=== PATIENT | male | born 1980 | race African-American/Black ===

== ENCOUNTER 2019-05-19 23:02 | Emergency (ER) | payer SELFPAY ==
[~2019-05-19] VITALS: Ht 172.7 cm; Wt 65.8 kg
[2019-05-19 23:16] VITALS: BP 151/74
--- NOTE | 2019-05-19 23:16 | NUR ---
ED Nurse Note: Patient walked in to ER due to dizziness, weakness. States that he fainted today at 2100. As per patient he feels an electricity at the back his head. No stated medical history. Pt alert and oriented, verbally responsive. No SOB. VSS.
--- NOTE | 2019-05-20 00:15 | NUR ---
ED Nurse Note: Patient able to walk to the restroom with steady gait.
--- NOTE | 2019-05-20 00:16 | Emergency Room Report ---
History of Present Illness General Chief Complaint: General Complaint Source: Patient Present Illness HPI This is a 38-year-old male with no past medical history. He presents with chief complaint of headache and dizziness. Patient said that he was sitting down and he felt like a sharp jolt like an electrical shock to the back of his head. He said he jumped up because of the pain. He said that he passed out. He did not pass out for 45 minutes. He was not sure. When I asked him further , he said it could be minutes to 45 minutes. He said he was not looking at a clock. When he woke up he came here. He complaining of some dizziness still. He is able to walk it without any problem. No nausea no vomiting. No fever chills but no oral trauma. No incontinence of bowel or urine. Denies any drug use or alcohol use. He said he had the same problem last year and went to the ER and work-up was negative. He never had any follow-up with specialist. Allergies: Coded Allergies: No Known Allergies (Unverified , 05/19/19) Patient History Past Medical History: see triage record, old chart reviewed Past Surgical History: none Pertinent Family History: none Social History: Denies: smoking Immunizations: other Reviewed Nursing Documentation: PMH: Agreed; PSxH: Agreed Nursing Documentation-PMH Past Medical History: No Stated History Review of Systems Eye: Denies: eye pain, blurred vision ENT: Denies: ear pain, nose congestion, throat swelling Respiratory: Denies: cough, shortness of breath Cardiovascular: Denies: chest pain, palpitations Gastrointestinal: Denies: abdominal pain, diarrhea, nausea, vomiting Musculoskeletal: Denies: back pain, joint pain Skin: Denies: rash Neurological: Denies: headache, numbness Endocrine: Denies: increased thirst, increased urine Hematologic/Lymphatic: Denies: easy bruising All Other Systems: negative except mentioned in HPI Physical Exam Vital Signs Date Time Temp Pulse Resp B/P (MAP) Pulse Ox O2 Delivery O2 Flow Rate FiO2 05/19/19 23:12 97.9 67 18 151/74 (99) 99 Room Air Vitals with high blood pressure Sp02 EP Interpretation: reviewed, normal General Appearance: well appearing, no apparent distress, alert Head: normocephalic, atraumatic Eyes: bilateral eye PERRL, bilateral eye EOMI ENT: hearing grossly normal, normal pharynx Neck: full range of motion, supple, no meningismus Respiratory: chest non-tender, lungs clear, normal breath sounds Cardiovascular #1: regular rate, rhythm, no murmur Gastrointestinal: normal bowel sounds, non tender, no mass, no organomegaly, no bruit, non-distended Musculoskeletal: back normal, gait/station normal, normal range of motion Psychiatric: mood/affect normal Medical Decision Making Diagnostic Impression: Primary Impression: Headache Qualified Codes: R51 - Headache ER Course Patient presents with headache. There is a gap in his history of anywhere from minutes to 45 minutes. He has no evidence of any injury. He has no evidence of seizure activity with no oral trauma or incontinence of bowel or urine. No evidence of any meningitis, bleed, mass. Will discharge home with neurology follow-up. CT/MRI/US Diagnostic Results CT/MRI/US Diagnostic Results : Imaging Test Ordered: CT head Impression Negative per radiologist Last Vital Signs Date Time Temp Pulse Resp B/P (MAP) Pulse Ox O2 Delivery O2 Flow Rate FiO2 05/19/19 23:16 97.9 80 18 151/74 99 Room Air Status: improved Disposition: HOME, SELF-CARE Condition: Stable Additional Instructions: Follow-up with your doctor in a week. You will need referral to see a neurologist for further work-up. You may need an EEG and other work-up for seizure. Return if worse. Aldo Oconnor MD May 20, 2019 00:16
--- NOTE | 2019-05-20 01:10 | NUR ---
ED Nurse Note: Pt taken for CT.
--- NOTE | 2019-05-20 01:33 | NUR ---
ED Nurse Note: Pt came back from CT.
--- NOTE | 2019-05-20 01:35 | Diagnostic Imaging Report ---
Indication: Headache Technique: Contiguous 5 mm thick transaxial imaging of the head obtained in a Siemens Sensation [address] scanner. Soft tissue and bone windows generated. Automatic Exposure Control was utilized. Total Dose length Product (DLP): 1489.[address] Dose Index Volume (CTDIvol): 62.7 mGy Comparison: none Findings: The size and configuration of the cortical sulci, basal cisterns, and ventricles are within normal limits for age. There is no mass effect, midline shift, or edema identified. There is no evidence of acute hemorrhage or abnormal intra-axial or extra-axial fluid collections. The bones and soft tissues are unremarkable. Impression: No mass effect, edema or acute bleed. The CT scanner at [facility] is accredited by the [employer] and the scans are performed using dose optimization techniques as appropriate to a performed exam including Automatic Exposure control.
[2019-05-20 01:38] VITALS: BP 151/74
--- NOTE | 2019-05-20 01:38 | NUR ---
ED Nurse Note: Pt cleared by ERMD for discharge. DC instructions was given and explained to pt and verbalized understanding of teachings. All medical deviecs such as ID band removed. Pt is AAO x4, ambulatory and left with all personal belongings.
== END 2019-05-20 01:38 | disposition home or self-care (01) ==
LOC: EMR 05-20 00:32
DX: R51 Headache (principal)
CPT/HCPCS: 70450; 99284

== ENCOUNTER 2019-05-29 19:07 | Inpatient (IN) | payer MEDICAID ==
[~2019-05-29] VITALS: Ht 172.7 cm; Wt 63.5 kg
[2019-05-29 19:25] VITALS: BP 121/74
--- NOTE | 2019-05-29 19:36 | Emergency Room Report ---
History of Present Illness General Chief Complaint: Chest Pain Source: Patient Present Illness HPI Patient with shower and started feeling palpitations with nearly passing out. He had been playing basketball earlier. He also had a couple of beers. He denies any chest pain at that time. He was somewhat short of breath. In coming to the emergency department symptoms are somewhat better at this time. Apparently in triage his heart rate was 117. He is uncertain whether he was starting to feel better. 4 days ago he was evaluated here for some unusual sensation in the back of his head. As he was laying down to go to sleep he had a shocking feeling that went from his head down the back of his neck to his body. There is no loss of consciousness. He states that the CT scan that was done was negative. No answers to what the cause is. No other labs done. No neck stiffness. He denies any stress. These symptoms cause anxiety. His work is very physical and he denies chest pain or dyspnea. He drinks at least 1/2 gallon of water a day. No muscle tenderness. No fevers, chills, sore throat, chest pain, nausea, vomiting, diarrhea, dysuria , abdominal pain, joint pain, rashes, depression, visual changes, headache. 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 Nursing Documentation: PMH: Agreed; PSxH: Agreed Nursing Documentation-PM Past Medical History: No Stated History Review of Systems All Other Systems: negative except mentioned in HPI Physical Exam Vital Signs Date Time Temp Pulse Resp B/P (MAP) Pulse Ox O2 Delivery O2 Flow Rate FiO2 05/29/19 19:10 97.3 98 18 121/74 (90) 99 Room Air Sp02 EP Interpretation: reviewed, normal General Appearance: well appearing, no apparent distress, GCS 15 Head: normocephalic, atraumatic Eyes: bilateral eye normal inspection, bilateral eye PERRL, bilateral eye EOMI ENT: normal pharynx, moist mucus membranes Neck: full range of motion, supple, no meningismus Respiratory: chest non-tender, lungs clear, normal breath sounds Cardiovascular #1: regular rate, rhythm Cardiovascular #2: 2+ radial (R) Gastrointestinal: normal inspection, normal bowel sounds, non tender, no mass, non-distended, scaphoid Musculoskeletal: back normal, normal range of motion, digits/nails normal, no calf tenderness, gait/station normal Neurologic: alert, oriented x3, sensory intact, cerebellar normal, speech normal, normal gait, grossly normal Psychiatric: anxious Skin: no rash, other - tattoos Medical Decision Making Diagnostic Impression: Primary Impression: Arrhythmia Qualified Codes: I49.9 - Cardiac arrhythmia, unspecified Additional Impressions: Leukocytosis Qualified Codes: D72.828 - Other elevated white blood cell count Hypomagnesemia Episodic shocking sensation posterior head pre-renal renal insuffiency Elevated blood uric acid level ER Course Patient presents with palpitations and near syncope. Differential includes PSVT , other arrhythmia, myocarditis, pulmonary embolus, anxiety, alcohol withdrawal (though unlikely) amongst others. Evaluation with EKG, chest x-ray and labs. Patient is placed on a color television console monitor. EKG normal sinus rhythm rate 78 possible left atrial enlargement, left ventricular hypertrophy with repolarization abnormality. Chest x-ray heart upper limits of normal. No infiltrates. Labs significant with leukocytosis. Left shift. Hemoglobin normal. CMP remarkable for renal insufficiency. Magnesium low. CPK minimally elevated. Tox screen and alcohol negative. Urinalysis without casts. ESR and C-reactive protein negative. Uric acid elevated. Magnesium administered IV. Patient feeling anxious and Ativan given. Due to renal insufficiency IV hydration continued. Fractional excretion of sodium suggests pre-renal. Etiology of the leukocytosis is unclear. His EKG is abnormal. Admitted observation telemetry. Consider cardiac echo. Laboratory Tests Test 05/29/19 19:40 05/29/19 23:40 White Blood Count 18.2 K/UL (4.8-10.8) H Red Blood Count 4.74 M/UL (4.70-6.10) Hemoglobin 15.5 G/DL (14.2-18.0) Hematocrit 42.4 % (42.0-52.0) Mean Corpuscular Volume 89 FL (80-99) Mean Corpuscular Hemoglobin 32.7 PG (27.0-31.0) H Mean Corpuscular Hemoglobin Concent 36.6 G/DL (32.0-36.0) H Red Cell Distribution Width 10.6 % (11.6-14.8) L Platelet Count 323 K/UL (150-450) Mean Platelet Volume 5.1 FL (6.5-10.1) L Neutrophils (%) (Auto) 82.2 % (45.0-75.0) H Lymphocytes (%) (Auto) 10.4 % (20.0-45.0) L Monocytes (%) (Auto) 7.0 % (1.0-10.0) Eosinophils (%) (Auto) 0.1 % (0.0-3.0) Basophils (%) (Auto) 0.3 % (0.0-2.0) Erythrocyte Sedimentation Rate 8 MM/HR (0-15) Prothrombin Time 10.5 SEC (9.30-11.50) Prothrombin Time INR 1.0 (0.9-1.1) PTT 24 SEC (23-33) Urine Color Pale yellow Urine Appearance Clear Urine pH 8 (4.5-8.0) Urine Specific [place] 1.010 (1.005-1.035) Urine Protein Negative (NEGATIVE) Urine Glucose (UA) Negative (NEGATIVE) Urine Ketones Negative (NEGATIVE) Urine Blood Negative (NEGATIVE) Urine Nitrite Negative (NEGATIVE) Urine Bilirubin Negative (NEGATIVE) Urine Urobilinogen Normal MG/DL (0.0-1.0) Urine Leukocyte Esterase Negative (NEGATIVE) Urine Random Sodium 31 mmol/L (20-110) Urine Creatinine 38.2 MG/DL (30.0-125.0) Sodium Level 141 MMOL/L (136-145) Potassium Level 4.0 MMOL/L (3.5-5.1) Chloride Level 102 MMOL/L (98-107) Carbon Dioxide Level 27 MMOL/L (21-32) Anion Gap 12 mmol/L (5-15) Blood Urea Nitrogen 23 mg/dL (7-18) H Creatinine 1.6 MG/DL (0.55-1.30) H Estimate Glomerular Filtration Rate 58.3 mL/min (>60) Glucose Level 88 MG/DL (74-106) Uric Acid 7.4 MG/DL (2.6-7.2) H Calcium Level 9.9 MG/DL (8.5-10.1) Magnesium Level 1.4 MG/DL (1.8-2.4) L Total Bilirubin 1.1 MG/DL (0.2-1.0) H Direct Bilirubin 0.2 MG/DL (0.0-0.3) Aspartate Amino Transferase (AST) 22 U/L (15-37) Alanine Aminotransferase (ALT) 25 U/L (12-78) Alkaline Phosphatase 63 U/L (46-116) Total Creatine Kinase 346 U/L (26-308) H Troponin I 0.027 ng/mL (0.000-0.056) 0.050 ng/mL (0.000-0.056) C-Reactive Protein, Quantitative < 0.4 mg/dL (0.00-0.90) Pro-B-Type Natriuretic Peptide 34 pg/mL (0-125) Total Protein 8.1 G/DL (6.4-8.2) Albumin 4.6 G/DL (3.4-5.0) Globulin 3.5 g/dL Albumin/Globulin Ratio 1.3 (1.0-2.7) Urine Opiates Screen Negative (NEGATIVE) Urine Barbiturates Screen Negative (NEGATIVE) Phencyclidine (PCP) Screen Negative (NEGATIVE) Urine Amphetamines Screen Negative (NEGATIVE) Urine Benzodiazepines Screen Negative (NEGATIVE) Urine Cocaine Screen Negative (NEGATIVE) Urine Marijuana (THC) Screen Negative (NEGATIVE) Serum Alcohol < 3 mg/dL Lactic Acid Level 0.50 mmol/L (0.4-2.0) Thyroid Stimulating Hormone (TSH) 1.654 uiU/mL (0.358-3.740) EKG Diagnostic Results Rate: normal Rhythm: NSR ST Segments: no acute changes - Left atrial enlargement, left ventricular hypertrophy with repolarization abnormality Rhythm Strip Diag. Results EP Interpretation: yes Rhythm: NSR, no PVC's, no ectopy Chest X-Ray Diagnostic Results Chest X-Ray Diagnostic Results : Chest X-Ray Ordered: Yes # of Views/Limited/Complete: 1 View Indication: Other EP Interpretation: Yes Interpretation: no consolidation, no effusion, no pneumothorax Impression: No acute disease Electronically Signed by: Electronically signed by Rivera Burgess MD Last Vital Signs Date Time Temp Pulse Resp B/P (MAP) Pulse Ox O2 Delivery O2 Flow Rate FiO2 05/30/19 00:00 97.7 71 18 114/71 (85) 99 05/29/19 23:15 Room Air Status: improved Disposition: PLACE IN OBSERVATION Condition: Serious Rivera Burgess MD May 29, 2019 19:36
[2019-05-29 20:02] LABS: HEMATOCRIT 42.4 % (42.0-52.0); HEMOGLOBIN 15.5 G/DL (14.2-18.0); MEAN CORPUSCULAR VOLUME 89 FL (80-99); PLATELET COUNT 323 K/UL (150-450); RED BLOOD COUNT 4.74 M/UL (4.70-6.10); RED CELL DISTRIBUTION WIDTH 10.6 % (11.6-14.8); WHITE BLOOD COUNT 18.2 K/UL (4.8-10.8)
[2019-05-29 20:04] LABS: APPEARANCE,URINE CLEAR; BASOPHILS % (AUTO) 0.3 % (0.0-2.0); BILIRUBIN, URINE NEGATIVE (NEGATIVE); COLOR,URINE PALE YELLOW; EOSINOPHILS % (AUTO) 0.1 % (0.0-3.0); GLUCOSE, URINE (UA) NEGATIVE (NEGATIVE); KETONES,URINE NEGATIVE (NEGATIVE); LEUKOCYTE ESTERASE ,URINE NEGATIVE (NEGATIVE); LYMPHOCYTES % (AUTO) 10.4 % (20.0-45.0); NEUTROPHILS % (AUTO) 82.2 % (45.0-75.0); NITRITE,URINE NEGATIVE (NEGATIVE); PH,URINE 8 (4.5-8.0); PROTEIN,URINE NEGATIVE (NEGATIVE); UROBILINOGEN,URINE NORMAL MG/DL (0.0-1.0)
[2019-05-29 20:12] LABS: ANION GAP 12 mmol/L (5-15); BLOOD UREA NITROGEN 23 mg/dL (7-18); CALCIUM 9.9 MG/DL (8.5-10.1); CARBON DIOXIDE 27 MMOL/L (21-32); CHLORIDE 102 MMOL/L (98-107); CREATININE 1.6 MG/DL (0.55-1.30); SODIUM 141 MMOL/L (136-145)
[2019-05-29 20:22] LABS: ALANINE AMINOTRANSFERASE 25 U/L (12-78); ALBUMIN 4.6 G/DL (3.4-5.0); ALBUMIN/GLOBULIN RATIO 1.3 (1.0-2.7); ALKALINE PHOSPHATASE 63 U/L (46-116); ASPARTATE AMINO TRANSFERASE 22 U/L (15-37); BILIRUBIN,TOTAL 1.1 MG/DL (0.2-1.0); CREATINE KINASE 346 U/L (26-308)
[2019-05-29 20:26] LABS: BILIRUBIN,DIRECT 0.2 MG/DL (0.0-0.3)
[2019-05-29] MEDS ORDERED: LORazepam Inj 2mg/ml 1ml IV ONE (20:30)
[2019-05-29 21:05] VITALS: BP 125/74
[2019-05-29] MEDS ORDERED: Nitroglycerin Subl 0.4mg tab SL PRN (23:15)
[2019-05-29] MEDS ORDERED: Milk of Magnesia 30ml Ud ORAL PRN (23:15)
[2019-05-29] MEDS ORDERED: Ipratropium 0.02% Inh Soln 2.5ml UD HHN PRN (23:15)
[2019-05-29] MEDS ORDERED: Albuterol ud Inhalation HHN PRN (23:15)
[2019-05-29] MEDS ORDERED: Mylanta II UD 30ml ORAL PRN (23:15)
[2019-05-29] MEDS ORDERED: Metoclopramide 10mg/2ml Inj IVP PRN (23:15)
[2019-05-29] MEDS ORDERED: LORazepam 1mg tab ORAL PRN (23:15)
[2019-05-29] MEDS ORDERED: Miralax 17gm pkt ORAL PRN (23:15)
[2019-05-29] MEDS ORDERED: Zolpidem 5mg tab ORAL PRN (23:15)
[2019-05-29] MEDS ORDERED: Acetaminophen 650 MG SUPP RECTAL PRN ×2 (23:15)
[2019-05-29] MEDS ORDERED: traMADol 50mg tab ORAL PRN (23:30)
[2019-05-29] MEDS ORDERED: HYDROcodone/Acetamin 5/325 tab ORAL PRN (23:30)
[2019-05-30] VITALS (7 sets, daily range): BP systolic 105–119; BP diastolic 53–74
[2019-05-30 06:27] LABS: BASOPHILS % (AUTO) 0.5 % (0.0-2.0); EOSINOPHILS % (AUTO) 1.4 % (0.0-3.0); HEMATOCRIT 37.5 % (42.0-52.0); HEMOGLOBIN 13.6 G/DL (14.2-18.0); LYMPHOCYTES % (AUTO) 27.3 % (20.0-45.0); MEAN CORPUSCULAR VOLUME 91 FL (80-99); MONOCYTES % (AUTO) 9.2 % (1.0-10.0); NEUTROPHILS % (AUTO) 61.6 % (45.0-75.0); PLATELET COUNT 264 K/UL (150-450); RED BLOOD COUNT 4.14 M/UL (4.70-6.10); RED CELL DISTRIBUTION WIDTH 10.9 % (11.6-14.8); WHITE BLOOD COUNT 7.5 K/UL (4.8-10.8)
[2019-05-30 06:55] LABS: ALANINE AMINOTRANSFERASE 19 U/L (12-78); ALBUMIN 3.5 G/DL (3.4-5.0); ALBUMIN/GLOBULIN RATIO 1.2 (1.0-2.7); ALKALINE PHOSPHATASE 46 U/L (46-116); ANION GAP 9 mmol/L (5-15); ASPARTATE AMINO TRANSFERASE 18 U/L (15-37); BILIRUBIN,TOTAL 1.2 MG/DL (0.2-1.0); BLOOD UREA NITROGEN 18 mg/dL (7-18); CALCIUM 8.1 MG/DL (8.5-10.1); CARBON DIOXIDE 26 MMOL/L (21-32); CHLORIDE 107 MMOL/L (98-107); CHOLESTEROL 130 MG/DL (< 200); CREATININE 1.3 MG/DL (0.55-1.30); HDL CHOLESTEROL 54 MG/DL (40-60); POTASSIUM 3.9 MMOL/L (3.5-5.1); SODIUM 142 MMOL/L (136-145); TRIGLYCERIDES 38 MG/DL (30-150)
[2019-05-30 07:02] LABS: BILIRUBIN,DIRECT 0.2 MG/DL (0.0-0.3)
[2019-05-30] MEDS: Heparin 5000 units/ml inj SUBQ SCH ×2 (09:00→21:00)
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
--- NOTE | 2019-05-30 10:15 | Diagnostic Imaging Report ---
Indication: Chest pain Comparison: None A single view chest radiograph was obtained. Findings: Cardiomediastinal appearance is within normal limits for age. The lungs are clear. Pulmonary vascularity is appropriate. The diaphragmatic contour is smooth and costophrenic angles are sharp. No pleural effusions are identified. The bones are unremarkable. Impression: No acute findings
--- NOTE | 2019-05-30 10:52 | Diagnostic Imaging Report ---
Indication: Cough Comparison: 05/29/2019 A single view chest radiograph was obtained. Findings: Cardiomediastinal appearance is within normal limits for age. The lungs are clear. Pulmonary vascularity is appropriate. The diaphragmatic contour is smooth and costophrenic angles are sharp. No pleural effusions are identified. The bones are unremarkable. Impression: No acute findings
[2019-05-30 12:13] LABS: APPEARANCE,URINE CLEAR; BILIRUBIN, URINE NEGATIVE (NEGATIVE); COLOR,URINE PALE YELLOW; GLUCOSE, URINE (UA) NEGATIVE (NEGATIVE); KETONES,URINE NEGATIVE (NEGATIVE); LEUKOCYTE ESTERASE ,URINE NEGATIVE (NEGATIVE); NITRITE,URINE NEGATIVE (NEGATIVE); PH,URINE 6.5 (4.5-8.0); PROTEIN,URINE NEGATIVE (NEGATIVE); UROBILINOGEN,URINE NORMAL MG/DL (0.0-1.0)
--- NOTE | 2019-05-30 16:40 | Diagnostic Imaging Report ---
Indication: Neck pain. Technique: Continuous helical imaging of the neck was obtained transaxially from the skull base to the upper thoracic spine. 2-D coronal and sagittal reformatted images were obtained. Total Dose length Product (DLP): 593.[address] Dose Index Volume (CTDIvol): 21.4 mGy Comparison: None Findings: Skull base structures are unremarkable. Mastoids are clear bilaterally. The visualized nasopharynx, oropharynx, and hypopharynx appears unremarkable. There is no mass or asymmetry identified. Supraglottic structures including the epiglottis and aryepiglottic folds appear normal. Small cervical nodes, nonspecific in nature are present bilaterally. The larynx is unremarkable. The subglottic airway is clear. There is no lymphadenopathy. The parotid, thyroid, submandibular and sublingual glands appear unremarkable. Vertebral endplate osteophytes noted at C6-7 with the some narrowing of intervertebral discs. Impression: Negative contrast-enhanced CT of the neck. Disc disease at C6-[address] scanner at [facility] is accredited by the [employer] and the scans are performed using dose optimization techniques as appropriate to a performed exam including Automatic Exposure control.
--- NOTE | 2019-05-30 19:19 | Cardiology Report ---
APPROVED REPORT EXAM: Two-dimensional and M-mode echocardiogram with Doppler and color Doppler. INDICATION Arrhythmia M-Mode DIMENSIONS IVSd1.1 (0.7-1.1cm)Left Atrium (MM)3.2 (1.6-4.0cm) LVDd5.1 (3.5-5.6cm)Aortic Root2.9 (2.0-3.7cm) PWd1.0 (0.7-1.1cm)Aortic Cusp Exc.2.0 (1.5-2.0cm) LVDs3.4 (2.5-4.0cm) PWs1.4 cm Normal left ventricular chamber size, systolic function and wall motion. Left ventricular ejection fraction estimated to be 60 %. No evidence of pericardial effusion. All other cardiac chamber sizes are within normal limits. Normal aortic valve with adequate cusp excursion. Mildly thickened mitral valve leaflets with normal excursion. Mild mitral annulus and aortic root calcification. Normal pulmonic valve structure. Normal tricuspid valve structure. IVC at normal size with physiologic collapse. A color flow and spectral Doppler study was performed and revealed: Trace to mild mitral regurgitation. Mitral inflow indicates normal left ventricular diastolic function. Mild tricuspid regurgitation. Tricuspid systolic velocities suggests peak right ventricular systolic pressure of 33 mmHg. Moderate pulmonic regurgitation present.
--- NOTE | 2019-05-30 19:22 | Cardiology Report ---
APPROVED REPORT EKG Measurement Heart [id number] Normal sinus rhythm Possible Left atrial enlargement Left ventricular hypertrophy with repolarization abnormality Abnormal ECG
[2019-05-31] VITALS: BP 117/61
[2019-05-31 04:00] VITALS: BP 124/64
[2019-05-31 07:14] LABS: ANION GAP 8 mmol/L (5-15); BLOOD UREA NITROGEN 16 mg/dL (7-18); CALCIUM 8.6 MG/DL (8.5-10.1); CARBON DIOXIDE 26 MMOL/L (21-32); CHLORIDE 110 MMOL/L (98-107); CREATININE 1.3 MG/DL (0.55-1.30); POTASSIUM 4.3 MMOL/L (3.5-5.1); SODIUM 144 MMOL/L (136-145)
[2019-05-31 08:00] VITALS: BP 99/59
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
[2019-05-31] MEDS: Heparin 5000 units/ml inj SUBQ SCH (09:00)
== END 2019-05-31 11:00 | disposition home or self-care (01) | DRG 207 ==
LOC: EMR 19:51 → 2E 22:40 → OBSVTOIN 22:40 → EDBEDREQ 22:54
DX: R00.2 Palpitations (principal); R55 Syncope and collapse; N17.9 Acute kidney failure, unspecified; E83.42 Hypomagnesemia; E86.0 Dehydration
CPT/HCPCS: 36415; 70490; 71045; 80048; 80053; 80061; 80307; 81003; 82248; 82550; 82570; 83036; 83605; 83735; 83880; 84300; 84443; 84484; 84550; 85025; 85610; 85651; 85730; 86140; 87040; 93005; 93306; 93880; 94664; 96361; 96365; 96375; 99284; G0480; J7030